=== PATIENT | female | born 1955 | race Hispanic/Latino ===

== ENCOUNTER 2018-11-08 17:24 | Emergency (ER) | payer OTHER ==
--- OUTSIDE RECORDS SUMMARY | 2018-11-08 17:27 | XMS REPORT ---
:1955 [facility] Address [address] [place] [address] [address]. [address] [place] [address] Care Team Providers Name Role Phone DR ANIKA BURGESS Unavailable Unavailable Problems This patient has no known problems. Allergies, Adverse Reactions, Alerts This patient has no known allergies or adverse reactions. Medications This patient has no known medications. Encounters Start End Encounter Admission Attending Care Care Encounter Date/Time Date/Time Type Type Clinicians Facility Department ID 2018-11-08 2018-11-08 Emergency E BL [id number] 00:01:00 00:01:00 2018-11-05 2018-11-05 Emergency E [facility] [id number] 21:43:00 21:43:00 2017-10-06 2017-10-[address] [facility] [id number] 10:07:55 10:07:55 2017-10-06 2017-10-06 Emergency [facility] [id number] 07:03:00 07:03:00 2017-07-24 2017-07-24 Emergency E ANIKA BURGESS [facility] [id number] 09:47:00 11:55:00 Results Test Description Test Time Test Comments Text Results Atomic Results Result Comments COMPREHENSIVE METABOLIC MORGAN 2017-07-24 11:21:00 Test Item Value Reference Range Comments GLUCOSE (test code=06D) 252 mg/dL 75-100 SODIUM (test code=01A) 138 mmol/L 136-145 POTASSIUM (test code=01B) 3.9 mmol/L 3.6-5.1 CHLORIDE (test code=04A) 101 mmol/L 98-107 CO2 (test code=02A) 30 mmol/L 22-32 ANION GAP (test code=ANG) 10.9 mmol/L BUN (test code=05D) 15 mg/dL 7-18 CREATININE (test code=03E) 0.9 mg/dL 0.4-1.1 BUN/CREA (test code=BCR) 17 12-20 CALCIUM (test code=09D) 9.0 mg/dL 8.3-9.5 BILI TOTAL (test code=11A) 0.4 mg/dL 0.2-1.0 PROTEIN (test code=07D) 7.5 g/dL 6.4-8.2 ALBUMIN (test code=08D) 3.8 g/dL 3.5-4.8 GLOBULIN (test code=GLB) 3.7 g/dL 1.5-3.8 ALB/GLOB (test code=AGRR) 1.0 1.0-2.6 ALK PHOS (test code=35A) 110 IU/L 42-121 AST (test code=30A) 18 IU/L <=42 ALT (test code=31A) 25 IU/L <=78 CARDIAC [id number] 11:16:00 Test Item Value Reference Range Comments TROPONIN I (test code=A84) <0.015 ng/mL 0.000-0.045 CKMB (test code=A49) 1.3 ng/mL <=3.6 CPK (test code=32A) 91 IU/L 26-192 [id number] 11:15:00 Test Item Value Reference Range Comments MAGNESIUM (test code=48A) 1.7 mg/dL 1.8-2.4 CBC WITH MANUAL [id number] 11:12:00 Test Item Value Reference Range Comments WBC (test code=WBC) 11.7 10\S\3/uL 4.5-11.0 RBC (test code=RBC) 4.40 10\S\6/uL 4.20-5.60 HGB (test code=HBG) 12.2 g/dL 12.0-15.5 HCT (test code=HCT) 36.5 % 35.0-44.0 MCV (test code=MCV) 83.0 fL 81.0-99.0 MCH (test code=MCH) 27.7 pg 27.0-31.0 MCHC (test code=MCHC) 33.4 g/dL 32.0-36.0 RDW (test code=RDW) 13.8 % 11.5-14.5 PLT (test code=PLT) 243 10\S\3/uL 130-400 MPV (test code=MPV) 10.7 fL 9.4-12.4 NEUTROP # (test code=NE#) 4.3 10\S\3/uL 1.6-8.0 LYMPH # (test code=LY#) 6.9 10\S\3/uL 1.1-3.5 MONOCYTE # (test code=MO#) 0.3 10\S\3/uL 0.0-1.1 EOSINOPH # (test code=EO#) 0.1 10\S\3/uL 0.0-0.7 BASOPHIL # (test code=BA#) 0.0 10\S\3/uL 0.0-0.3 IG # (test code=IG#) 0.04 10\S\3/uL 0.00-0.06 NRBC # (test code=NRBC#) 0.00 10\S\3/uL 0.00-0.01 NEUTROPH % (test code=NE%) 36.9 % 35.0-73.0 LYMPH % (test code=LY%) 58.7 % 20.0-55.0 MONO % (test code=MO%) 2.9 % 2.5-10.0 EOSINOPH % (test code=EO%) 0.9 % 0.0-5.0 BASOPHIL % (test code=BA%) 0.3 % 0.0-2.0 IG % (test code=IG%) 0.3 % 0.0-0.8 NRBC% (test code=NRBC%) 0.0 % 0.0-0.2 MAN DIFF (test code=HMDIFF) MANUAL DIFFERENTIAL SEG (test code=SEG) 44 % 42-75 BAND (test code=BAND) 1 % 0-8 LYMPH (test code=LYMPH) 54 % 20-51 MONO (test code=MONO) 1 % 3-11 EOS (test code=EOS) 0 % 0-10 BASO (test code=BASO) 0 % 0-2 SMUDGE (test code=SMUD) 10 /100WBC RBC MORPH (test code=RBCMORN) NORMAL NORMAL PLT EST (test code=PLTEST) ADEQUATE ADEQUATE PLT MORPH (test code=PLTMOR) NORMAL (1.5-3 um) NORMAL PRO TIME AND [id number] 11:06:00 Test Item Value Reference Range Comments PT (test code=TT) 11.1 s 9.8-13.6 INR (test code=INR) 1.0 INRH (test code=INRH) SUGGESTED THERAPEUTIC RANGE FOR INR: 2.5 - 3.5 For Patients with Prosthetic Valves or Patients with recurrent Thromboembolic Events 2.0 - 3.0 For Most Other Applications PTT (test code=PTT) 27.4 s 20.2-38.0 PTTH (test code=PTTH) To monitor the effectiveness of heparin, we offer the Anti-Xa (Heparin Assay). It can be used for either unfractionated or LMW Heparin. Order Code is ANTI-XA XR CHEST 1 VIEW [id number] 11:01:03Portable chest one view.HISTORY:R42: DIZZINESS AND GIDDINESSCOMMENT: No comparison. The lungs are clear and normally expanded. The heartand pulmonary vasculature is normal. Visualized soft tissues andskeletalstructures are unremarkable. IMPRESSION: No active disease in the chest.[id number] 11:01:00 Test Item Value Reference Range Comments COLOR (test code=COLU) YELLOW YELLOW CLARITY (test code=CLA) CLEAR CLEAR GLUCOSE UR (test code=UA GLUCOSE) NEGATIVE NEGATIVE BILI UR (test code=BILE) NEGATIVE NEGATIVE KETONES UR (test code=GIO) NEGATIVE NEGATIVE SP GRAVITY (test code=SPGR) 1.015 1.005-1.030 PH UR (test code=PH) 6.0 4.5-8.0 PROTEIN UR (test code=PU) NEGATIVE NEGATIVE UROBIL UR (test code=UROQ) 0.2 EU/dL 0.2-1.0 NITRITE UR (test code=NITRITE) NEGATIVE NEGATIVE BLOOD UR (test code=UA BLOOD) NEGATIVE NEGATIVE LEUK ES UR (test code=LEUK) NEGATIVE NEGATIVE
[2018-11-08] MEDS ORDERED: FENTANYL CITR 100 MCG/2 ML ONE (19:41)
[2018-11-08 19:57] LABS: Urine Blood NEGATIVE (NEG); Urine Glucose 1+ (NEG); Urine Protein NEGATIVE (NEG); Urine Specific Gravity 1.015 (1.005-1.030); Urine pH 7.5 (5.0-7.0)
[2018-11-08 20:00] LABS: Basophils % 0.2 % (0-1.3); Eosinophils % 1.1 % (0-4.4); Hematocrit 37.4 % (36.0-45.0); Lymphocytes % 69.4 % (15.3-44.8); MPV 8.2 fL (7.6-11.3); Monocytes % 3.1 % (3.3-12.3); RBC Red Blood Cell Count 4.71 M/uL (3.86-4.86)
[2018-11-08] MEDS ORDERED: ONDANSETRON 4 MG/2 ML VIAL ONE (20:01)
--- NOTE | 2018-11-08 20:01 | RAD REPORT ---
EXAM DESCRIPTION: CT - Stone Protocol - 11/08/2018 7:33 pm CLINICAL HISTORY: Abdominal pain, left flank pain COMPARISON: None. TECHNIQUE: Axial 5 mm thick images were obtained without oral or IV contrast. The [id number] span s the entirety of the system including uppermost abdomen and lung bases. All CT scans are performed using dose optimization technique as appropriate and may include automated exposure control or mA/KV adjustment according to patient size. FINDINGS: No hydronephrosis is present and no obstructing ureteral calculi. No suspicious renal mass es. Isodense masses and pyelonephritis are not excluded on a stone protocol CT scan. No urinary bladd er suspicious finding. No significant adrenal finding. Uterus and ovaries show no suspicious findings . Imaged portions of the liver, spleen and pancreas show no suspicious findings on non-contrast imaging . No gallbladder or biliary tree abnormality identified. No suspicious bowel findings. No hernia, mass or bulky lymphadenopathy noted. No free air, free fluid or inflammatory stranding. No significant bony abnormality. Disc and bone degenerative changes are present. IMPRESSION: Negative CT stone protocol study. Isodense masses and pyelonephritis are not excluded on stone protocol technique. No significant or suspicious findings identifiable.
[2018-11-08 20:09] LABS: Urine Bacteria <20 /HPF (<20); Urine Culture Reflex Order NOT NEEDED; Urine RBC <5 /HPF (NONE SEEN)
[2018-11-08 20:16] LABS: ALT/SGPT 24 U/L (12-78); AST/SGOT 10 U/L (15-37); Albumin 3.9 g/dL (3.4-5.0); Alkaline Phosphatase 120 U/L (45-117); BUN Blood Urea Nitrogen 17 mg/dL (7-18); Bicarbonate 27 mmol/L (21-32); Bilirubin Direct < 0.1 mg/dL (0-0.2); Bilirubin Total 0.3 mg/dL (0.2-1.0); Glucose Level 165 mg/dL (74-106); Lipase 297 U/L (73-393); Protein, Total 7.2 g/dL (6.4-8.2); Sodium Level 141 mmol/L (136-145)
--- NOTE | 2018-11-08 20:24 | ER ---
Nurse's Notes [facility] Name: Sandra Foster Age: 63 yrs Sex: Female : 1955 Arrival Date: 11/08/2018 Time: 17:29 Bed 23 Private MD: Diagnosis: Upper abdominal pain, unspecified Presentation: 11/08 17:46 Presenting complaint: Patient states: L FLANK AND L ABD PAIN x9 DAYS, DENIES VOMITING bp AND DIARRHEA. Transition of care: patient was not received from another setting of care. Onset of symptoms is unknown. Risk Assessment: Do you want to hurt yourself or someone else? Patient reports no desire to harm self or others. Initial Sepsis Screen: Does the patient meet any 2 criteria? No. Patient's initial sepsis screen is negative. Does the patient have a suspected source of infection? No. Patient's initial sepsis screen is negative. Care prior to arrival: None. 17:46 Method Of Arrival: Wheelchair bp 17:46 Acuity: MORAIMA 3 bp Triage Assessment: 18:53 General: Appears in no apparent distress. uncomfortable, obese, Behavior is bp cooperative, appropriate for age, anxious. Pain: Complains of pain in posterior aspect of left lateral abdomen and anterior aspect of left lateral abdomen. EENT: No deficits noted. Neuro: No deficits noted. Cardiovascular: No deficits noted. Respiratory: No deficits noted. GI: Reports lower abdominal pain, upper abdominal pain, nausea. : No signs and/or symptoms were reported regarding the genitourinary system. Derm: No deficits noted. Musculoskeletal: No deficits noted. Historical: - Allergies: 17:48 No Known Allergies; bp - PMHx: 17:48 Diabetes - NIDDM; Hypertension; bp - PSHx: 17:48 CABG; bp - Immunization history:: Adult Immunizations up to date. - Social history:: Smoking status: . - Ebola Screening: : No symptoms or risks identified at this time. Screenin:57 Abuse screen: Denies threats or abuse. Denies injuries from another. Nutritional rv screening: No deficits noted. Tuberculosis screening: No symptoms or risk factors identified. Fall Risk None identified. Assessment: 19:56 General: Appears in no apparent distress. comfortable, Behavior is calm, cooperative. rv Pain: Complains of pain in abdomen. Neuro: Level of Consciousness is awake, alert, obeys commands, Oriented to person, place, time, situation. Cardiovascular: Patient's skin is warm and dry. Respiratory: Airway is patent. GI: Bowel sounds present X 4 quads. Abd is soft and non tender X 4 quads. : No signs and/or symptoms were reported regarding the genitourinary system. EENT: No signs and/or symptoms were reported regarding the EENT system. Musculoskeletal: No signs and/or symptoms reported regarding the musculoskeletal system. Vital Signs: 17:48 BP 155 / 74; Pulse 90; Resp 16; Temp 97.5; Pulse Ox 99% ; Weight 72.57 kg; Height 5 ft. bp 1 in. (154.94 cm); 20:11 BP 145 / 79; Pulse 98; Resp 16; Pulse Ox 97% on R/A; rv 20:31 BP 148 / 76; Pulse 96; Resp 17; Temp 97.8; Pulse Ox 98% on R/A; rv 17:48 Body Mass Index 30.23 (72.57 kg, 154.94 cm) bp ED Course: 17:29 Patient arrived in ED. mr 17:47 Triage completed. bp 17:48 Arm band placed on. bp 19:10 Melvin Bustillos MD is Attending Physician. gs 19:35 CT Stone Protocol In Process Unspecified. EDMS 19:44 Initial lab(s) drawn, by me, sent to lab. Inserted saline lock: 20 gauge in right lt1 antecubital area, using aseptic technique. 19:54 Meir Peters RN is Primary Nurse. rv 19:57 Placed in gown. Bed in low position. Call light in reach. Side rails up X 1. Pulse ox rv on. NIBP on. 20:32 No provider procedures requiring assistance completed. IV discontinued, intact, rv bleeding controlled, No redness/swelling at site. Pressure dressing applied. Administered Medications: 19:40 Drug: fentaNYL (PF) 50 mcg Route: IVP; Site: right antecubital; rv 20:28 Follow up: Response: Marked relief of symptoms rv 19:40 Drug: Zofran 4 mg Route: IVP; Site: right antecubital; rv 20:28 Follow up: Response: No adverse reaction rv Outcome: 20:23 Discharge ordered by . gs 20:32 Discharged to home ambulatory. rv 20:32 Condition: good 20:32 Discharge instructions given to patient, Instructed on discharge instructions, follow up and referral plans. Demonstrated understanding of instructions, follow-up care. 20:38 Patient left the ED. ae4 Signatures: Dispatcher [employer] ED Mary Beth Zayas Melvin Bhagat MD MD gs Peltier, Brian, RN RN Meir Parry RN RN Wandy Walls [facility] Venkatesh Meadows RN RN ae4
--- NOTE | 2018-11-08 20:24 | EDPHYS ---
Physician Documentation [facility] Name: Sandra Foster Age: 63 yrs Sex: Female : 1955 Arrival Date: 11/08/2018 Time: 17:29 Bed 23 Private MD: ED Physician Melvin Bustillos HPI: 11/08 20:16 This 63 yrs old Female presents to ER via Wheelchair with complaints of gs Abdominal Pain, Nausea. 20:16 Onset: The symptoms/episode began/occurred gradually, 10 week(s) ago. Possible causes: gs unknown. The symptoms are aggravated by nothing. The symptoms are alleviated by nothing. Associated signs and symptoms: Pertinent positives: abdominal pain, LEFT FLANK PAIN. Severity of symptoms: At their worst the symptoms were moderate in the emergency department the symptoms are unchanged. The patient has been recently seen by a physician: with similar presenting complaints, 2-3 ER VISITS TYLENOL 3 CODEINE. Historical: - Allergies: 17:48 No Known Allergies; bp - PMHx: 17:48 Diabetes - NIDDM; Hypertension; bp - PSHx: 17:48 CABG; bp - Immunization history:: Adult Immunizations up to date. - Social history:: Smoking status: . - Ebola Screening: : No symptoms or risks identified at this time. ROS: 20:16 All other systems are negative. gs Exam: 20:16 Head/Face: Normocephalic, atraumatic. Eyes: Pupils equal round and reactive to light, gs extra-ocular motions intact. Lids and lashes normal. Conjunctiva and sclera are non-icteric and not injected. Cornea within normal limits. Periorbital areas with no swelling, redness, or edema. ENT: Nares patent. No nasal discharge, no septal abnormalities noted. Tympanic membranes are normal and external auditory canals are clear. Oropharynx with no redness, swelling, or masses, exudates, or evidence of obstruction, uvula midline. Mucous membranes moist. Neck: Trachea midline, no thyromegaly or masses palpated, and no cervical lymphadenopathy. Supple, full range of motion without nuchal rigidity, or vertebral point tenderness. No Meningismus. Chest/axilla: Normal chest wall appearance and motion. Nontender with no deformity. No lesions are appreciated. Cardiovascular: Regular rate and rhythm with a normal S1 and S2. No gallops, murmurs, or rubs. Normal PMI, no JVD. No pulse deficits. Respiratory: Lungs have equal breath sounds bilaterally, clear to auscultation and percussion. No rales, rhonchi or wheezes noted. No increased work of breathing, no retractions or nasal flaring. Back: No spinal tenderness. No costovertebral tenderness. Full range of motion. Skin: Warm, dry with normal turgor. Normal color with no rashes, no lesions, and no evidence of cellulitis. MS/ Extremity: Pulses equal, no cyanosis. Neurovascular intact. Full, normal range of motion. Neuro: Awake and alert, GCS 15, oriented to person, place, time, and situation. Cranial nerves II-XII grossly intact. Motor strength 5/5 in all extremities. Sensory grossly intact. Cerebellar exam normal. Normal gait. 20:16 Constitutional: The patient appears alert, awake. 20:16 Abdomen/GI: Palpation: mild abdominal tenderness, in the left upper quadrant and left lower quadrant. Vital Signs: 17:48 BP 155 / 74; Pulse 90; Resp 16; Temp 97.5; Pulse Ox 99% ; Weight 72.57 kg; Height 5 ft. bp 1 in. (154.94 cm); 20:11 BP 145 / 79; Pulse 98; Resp 16; Pulse Ox 97% on R/A; rv 20:31 BP 148 / 76; Pulse 96; Resp 17; Temp 97.8; Pulse Ox 98% on R/A; rv 17:48 Body Mass Index 30.23 (72.57 kg, 154.94 cm) bp MDM: 19:16 Patient medically screened. 20:16 Differential diagnosis: Nonspecific abd pain, gastritis, viral gastroenteritis, gs gastroenteritis. Data reviewed: vital signs, nurses notes. Counseling: I had a detailed discussion with the patient and/or guardian regarding: the historical points, exam findings, and any diagnostic results supporting the discharge/admit diagnosis, lab results, radiology results, CONCERN FOR TYLENOL 3 USAGE. Response to treatment: the patient's symptoms have markedly improved after treatment, and as a result, I will discharge patient. 11/08 19:19 Order name: Basic Metabolic Panel 11/08 19:19 Order name: CBC with Diff 11/08 19:19 Order name: Hepatic Function; Complete Time: 20:23 11/08 19:19 Order name: Lipase; Complete Time: 20:23 11/08 19:19 Order name: Urine Microscopic Only; Complete Time: 20:15 11/08 19:20 Order name: Basic Metabolic Panel; Complete Time: 20:23 EDND 11/08 19:19 Order name: IV Saline Lock; Complete Time: 19:45 11/08 19:19 Order name: Labs collected and sent; Complete Time: 19:45 11/08 19:19 Order name: CT Stone Protocol; Complete Time: 20:09 11/08 19:20 Order name: CBC with Automated Diff EDND 11/08 19:39 Order name: Urine Dipstick--Ancillary (enter results); Complete Time: 20: mw2 11/08 19:19 Order name: Urine Dipstick-Ancillary (obtain specimen); Complete Time: 19:55 Administered Medications: 19:40 Drug: fentaNYL (PF) 50 mcg Route: IVP; Site: right antecubital; rv 20:28 Follow up: Response: Marked relief of symptoms rv 19:40 Drug: Zofran 4 mg Route: IVP; Site: right antecubital; rv 20:28 Follow up: Response: No adverse reaction rv Disposition: 11/08/18 20:23 Discharged to Home. Impression: Upper abdominal pain, unspecified. - Condition is Stable. - Discharge Instructions: Abdominal Pain, Adult. - Medication Reconciliation Form, Thank You Letter, Antibiotic Education, Prescription Opioid Use form. - Follow up: Private Physician; When: 2 - 3 days; Reason: Re-evaluation by your physician. Signatures: [facility] Melvin Bustillos MD MD Gume Mcginnis, RN RN bp Meir Peters RN RN rv Venkatesh Meadows RN RN ae4 Corrections: (The following items were deleted from the chart) 20:38 20:23 11/08/2018 20:23 Discharged to Home. Impression: Upper abdominal pain, ae4 unspecified. Condition is Stable. Forms are Medication Reconciliation Form, Thank You Letter, Antibiotic Education, Prescription Opioid Use. Follow up: Private Physician; When: 2 - 3 days; Reason: Re-evaluation by your physician.
[2018-11-08 20:55] LABS: Blood Morphology Comment NOT SEEN (NOT SEEN); Platelet Estimate ADEQ
== END 2018-11-08 20:38 | disposition home or self-care (01) ==
LOC: ER 17:24
DX: R10.10 Upper abdominal pain, unspecified (principal); I10 Essential (primary) hypertension; Z95.1 Presence of aortocoronary bypass graft
CPT/HCPCS: 85025; 80048; 36415; 80076; 83690; 76377; 74176; 96375; 96374; 99284; J3010; J2405; 81003; 81015